=== PATIENT | male | born 1965 | race Caucasian/White ===

== ENCOUNTER 2016-07-02 10:13 | Observation (INO) | payer OTHER ==
[~2016-07-02] VITALS: Ht 177.8 cm; Wt 83.9 kg
[~2016-07-02 10:13] MED LIST: ARIP5TAB20 PO; ASPI-586 PO; ATOR20TA66 PO; BREX2TAB PO; BUPR150T9 PO; CEPH500C PO; CITA40TA11 PO; HYDR1CAP2 PO; HYDR50CA PO; HYDR50CA3 PO; KETO10TA PO; LEVO750T9 PO; LITH300C PO; LITH600C PO; RIVA15TA PO; RIVA20TA PO; VORT20TA PO; WARF6TAB6 PO
--- OUTSIDE RECORDS SUMMARY | 2016-07-02 10:20 | XMS REPORT | Continuity of Care Document ---
Author Author [facility] Organization [facility] Address Unknown Phone Unavailable Care Team Providers Care [place] [place] Worker Name Role Phone JLUIS JASMINE MD PCP Insurance Providers Payer Name Policy Number Subscriber Name Relationship [facility] [employer] [id number] Beth Kulkarni 01 Advance Directives Directive Response Recorded Date/Time Advance Directives No 12/08/15 12:02pm Health Care Power of Cap Parts Cutter No 12/08/15 12:02pm Organ Donor Yes 12/08/15 12:02pm Resuscitation Status Full Code 12/08/15 12:02pm Chief Complaint and Reason for Visit Chief Complaint RLQ PAIN Reason for Visit RLQ abdominal pain Problems Active Problems Medical Problem Onset Date Status Intractable abdominal pain Unknown Acute Leukocytosis Unknown Acute Lower abdominal pain Unknown Acute Pleuritic chest pain Unknown Acute Pulmonary embolism Unknown Acute RLL pneumonia Unknown Acute RLQ abdominal pain Unknown Acute Medications Current Home Medications Medication Dose Units Route Directions Days/Qty Instructions Start Date Hydroxyzine Pamoate 50 Mg 50 Mg Oral Three Times A Day as needed for Anxiety 06/13/15 Bupropion Hcl 150 Mg 150 Mg Oral Daily 09/18/15 Atorvastatin Calcium 20 Mg 20 Mg Oral Daily 09/18/15 Aspirin 81 Mg 81 Mg Oral Daily 09/18/15 Brexpiprazole 2 Mg 2 Mg Oral Daily 12/08/15 Vortioxetine Hydrobromide 20 Mg 20 Mg Oral Daily 12/08/15 Rivaroxaban 20 Mg 20 Mg Oral Daily 12/08/15 Past Home Medications Medication Directions Ordered Status Cephalexin Monohydrate (Keflex) 500 Mg Capsule, 1 Each Oral Four Times Daily 02/18/10 Discontinued [place] Carbonate 300 Mg Capsule, 300 Mg Oral Daily 06/12/15 Discontinued Citalopram Hydrobromide 40 Mg Tablet, 40 Mg Oral Daily 06/12/15 Discontinued Aripiprazole 5 Mg Tablet, 5 Mg Oral Bedtime 06/12/15 Discontinued Hydroxyzine Pamoate 50 Mg Capsule, 50 Mg Oral Three Times A Day as needed for Anxiety 06/12/15 Discontinued [place] Carbonate 300 Mg Capsule, 600 Mg Oral Bedtime 06/13/15 Discontinued Levofloxacin 750 Mg Tablet, 750 Mg Oral Daily 06/18/15 Discontinued Rivaroxaban 15 Mg Tablet, 15 Mg Oral Twice A Day 06/19/15 Discontinued Ketorolac Tromethamine 10 Mg Tablet, 10 Mg Oral Every 6 Hours 06/19/15 Discontinued [place] Carbonate 600 Mg Capsule, 600 Mg Oral Twice A Day 09/18/15 Discontinued Aripiprazole 5 Mg Tablet, 5 Mg Oral Daily 09/18/15 Discontinued Warfarin Sodium 6 Mg Tablet, 6 Mg Oral Daily 09/18/15 Discontinued Social History Social History Problem Response Recorded Date/Time Alcohol Use Denies Use 12/08/2015 12:03pm Recreational Drug Use No 12/08/2015 12:03pm Recent Foreign Travel No 12/08/2015 12:03pm Recent Infectious Disease Exposure No 12/08/2015 12:03pm Sexually Transmitted Disease No 12/08/2015 12:03pm HIV/AIDS No 12/08/2015 12:03pm Smoking Status Current Everyday Smoker 12/08/2015 12:02pm Do you dip or chew tobacco? No 12/08/2015 8:53am Query Response Start Date Stop Date Smoking Status Current Everyday Smoker Hospital Discharge Instructions Patient Instructions Physician Instructions Follow Up PRN Activity as tolerated High Fiber Diet 25g or more per day Avoid Alcohol, Caffeine, Spicy [place] and Acid foods. Drink 64 fluid oz or more of fluids per day. Symptoms to Report: Fever over 101 degree F, Nausea/Vomiting If any problems/questions: Contact your physician or go to Emergency Room Plan of Care Discharge Date 12/08/15 4:13pm Disposition 01 HOME, SELF-CARE Instructions/Education Provided Acute Abdominal Pain (ED) Prescriptions See Medication Section Care Plan and Goals See Discharge Instructions Section Functional Status Query Response Date Recorded Patient Orientation Person Place Time Situation December 08, 2015 4:17pm Comprehension Ability Understands Concepts December 08, 2015 12:06pm Allergies, Adverse Reactions, Alerts No known allergies. Immunizations Name Given Type Hepatitis A No Historical Hepatitis B Yes Historical Tetanus Booster (TDap) More than 5yrs Historical Vital Signs Acute Vital Signs Vital Response Date/Time Temperature (Fahrenheit) 98.0 degrees F (97.6 - 99.5) 12/08/2015 2:48pm Temperature (Calculated Celsius) 36.21570 degrees C (36.4 - 37.5) 12/08/2015 2:48pm Temperature Source Tympanic 12/08/2015 2:48pm Pulse Rate (adult) 60 bpm (60 - 90) 12/08/2015 4:05pm Respiratory Rate 20 bpm (12 - 24) 12/08/2015 4:05pm O2 Sat by Pulse Oximetry 97 % (88 - 100) 12/08/2015 4:05pm Blood Pressure 147/70 mm Hg 12/08/2015 4:05pm Blood Pressure Mean 95 mm Hg 12/08/2015 2:48pm Pain Numeric Pain Scale 2 12/08/2015 2:48pm Height (Feet) 5 feet 12/08/2015 12:00pm Height (Inches) 10.00 inches 12/08/2015 12:00pm Height (Calculated Centimeters) 177.114349 cm 12/08/2015 12:00pm Weight (Pounds) 211 pounds 12/08/2015 12:09pm Weight (Ounces) 1.0 oz 12/08/2015 12:09pm Weight (Calculated Grams) 22212.341 gm 12/08/2015 12:09pm Weight (Calculated Kilograms) 95.551167 kilograms 12/08/2015 12:09pm Calculated BMI 30.3 12/08/2015 12:00pm Results Laboratory Results Test Name Result Units Flags Reference Collection Date/Time Result Date/ Time Comments White Blood Count 7.6 10^3/uL 4.3-11.0 12/08/2015 2:23pm 12/08/2015 2: 35pm Red Blood Count 4.49 10^6/uL 4.35-5.85 12/08/2015 2:23pm 12/08/2015 2: 35pm Hemoglobin 14.3 G/DL 13.3-17.7 12/08/2015 2:12/08/2015 2:35pm Hematocrit 42 % 40-54 12/08/2015 2:12/08/2015 2:35pm Mean Corpuscular Volume 93 FL 80-99 12/08/2015 2:12/08/2015 2: 35pm Mean Corpuscular Hemoglobin 32 PG 25-34 12/08/2015 2:12/08/2015 2: 35pm Mean Corpuscular Hemoglobin Concent 34 G/DL 32-36 12/08/2015 2:09/2015 2:35pm Red Cell Distribution Width 14.4 % 10.0-14.5 12/08/2015 2:2015 2:35pm Platelet Count 211 10^3/uL 130-400 12/08/2015 2:12/08/2015 2:35pm Mean Platelet Volume 10.0 FL 7.4-10.4 12/08/2015 2:12/08/2015 2: 35pm Neutrophils (%) (Auto) 65 % 42-75 12/08/2015 2:12/08/2015 2:35pm Lymphocytes (%) (Auto) 21 % 12-44 12/08/2015 2:12/08/2015 2:35pm Monocytes (%) (Auto) 10 % 0-12 12/08/2015 2:12/08/2015 2:35pm Eosinophils (%) (Auto) 4 % 0-10 12/08/2015 2:12/08/2015 2:35pm Basophils (%) (Auto) 1 % 0-10 12/08/2015 2:12/08/2015 2:35pm Neutrophils # (Auto) 4.9 X 10^3 1.8-7.8 12/08/2015 2:12/08/2015 2: 35pm Lymphocytes # (Auto) 1.6 X 10^3 1.0-4.0 12/08/2015 2:12/08/2015 2: 35pm Monocytes # (Auto) 0.8 X 10^3 0.0-1.0 12/08/2015 2:12/08/2015 2: 35pm Eosinophils # (Auto) 0.3 10^3/uL 0.0-0.3 12/08/2015 2:23pm 12/08/2015 2 :35pm Basophils # (Auto) 0.1 10^3/uL 0.0-0.1 12/08/2015 2:23pm 12/08/2015 2: 35pm Prothrombin Time 15.9 SEC H 12.2-14.7 12/08/2015 9:00am 12/08/2015 9: 31am INR Comment 1.3 0.8-1.4 12/08/2015 9:00am 12/08/2015 9:31am INTERPRETIVE DATA SUGGESTED THERAPEUTIC RANGE FOR INR'S: VENOUS THROMBOSIS, PULMONARY EMBOLISM, OR PREVENTION OF SYSTEMIC EMBOLISM (EG. IN ATRIAL FIBRILLATION): 2.0 - 3.0 MECHANICAL PROSTHETIC HEART VALVES: 2.5 - 3.5* *NOTE: INR'S UP TO 4.5 MAY BE NECESSARY IN SELECTED GROUPS OF HIGH RISK PATIENTS. [employer] CONSENSUS CONFERENCE ON ANTITHROMBOTIC THERAPY (2000). Activated Partial Thromboplast Time 36 SEC H 24-35 12/08/2015 9:00am 09/2015 9:31am Urine Color YELLOW 12/08/2015 8:55am 12/08/2015 9:09am Urine Clarity CLEAR 12/08/2015 8:55am 12/08/2015 9:09am Urine pH 6.5 5-9 12/08/2015 8:55am 12/08/2015 9:09am Urine Specific [place] 1.005 * 1.016-1.022 12/08/2015 8:55am 2015 9:09am Urine Protein NEGATIVE NEGATIVE 12/08/2015 8:55am 12/08/2015 9:09am Urine Glucose (UA) NEGATIVE NEGATIVE 12/08/2015 8:55am 12/08/2015 9: 09am Urine RBC (Auto) NEGATIVE NEGATIVE 12/08/2015 8:55am 12/08/2015 9: 09am Urine Ketones NEGATIVE NEGATIVE 12/08/2015 8:55am 12/08/2015 9:09am Urine Nitrite NEGATIVE NEGATIVE 12/08/2015 8:55am 12/08/2015 9:09am Urine Bilirubin NEGATIVE NEGATIVE 12/08/2015 8:55am 12/08/2015 9: 09am Urine Urobilinogen NORMAL MG/DL NORMAL 12/08/2015 8:55am 12/08/2015 9: 09am Urine Leukocyte Esterase NEGATIVE NEGATIVE 12/08/2015 8:55am 2015 9:09am Urine RBC NONE /HPF 12/08/2015 8:55am 12/08/2015 9:09am Urine WBC NONE /HPF 12/08/2015 8:55am 12/08/2015 9:09am Urine Bacteria NEGATIVE /HPF 12/08/2015 8:55am 12/08/2015 9:09am Urine Crystals NONE /LPF 12/08/2015 8:55am 12/08/2015 9:09am Urine Casts NONE /LPF 12/08/2015 8:55am 12/08/2015 9:09am Urine Mucus SMALL /LPF * 12/08/2015 8:55am 12/08/2015 9:09am Urine Culture Indicated NO 12/08/2015 8:55am 12/08/2015 9:09am Sodium Level 138 MMOL/L 135-145 12/08/2015 9:00am 12/08/2015 9:45am Potassium Level 4.0 MMOL/L 3.6-5.0 12/08/2015 9:00am 12/08/2015 9:45am Chloride Level 105 MMOL/L 98-107 12/08/2015 9:00am 12/08/2015 9:45am Carbon Dioxide Level 22 MMOL/L 21-32 12/08/2015 9:00am 12/08/2015 9: 45am Anion Gap 11 MMOL/L 5-14 12/08/2015 9:00am 12/08/2015 9:45am Blood Urea Nitrogen 14 MG/DL 7-18 12/08/2015 9:00am 12/08/2015 9:45am Creatinine 0.96 MG/DL 0.60-1.30 12/08/2015 9:00am 12/08/2015 9:45am BUN/Creatinine Ratio 15 12/08/2015 9:00am 12/08/2015 9:45am Estimat Glomerular Filtration Rate > 60 12/08/2015 9:00am 2015 9:45am GFR INTERPRETIVE DATA UNITS FOR ESTIMATED GFR (eGFR): mL/min/1.73 M2 REFERENCE RANGE FOR ESTIMATED GFR (eGFR) eGFR NORMAL eGFR >60 MODERATELY DECREASED eGFR 30-59 SEVERLY DECREASED eGFR 15-29 KIDNEY FAILURE <15 (OR DIALYSIS) Glucose Level 100 MG/DL 70-105 12/08/2015 9:00am 12/08/2015 9:45am Calcium Level 9.2 MG/DL 8.5-10.1 12/08/2015 9:00am 12/08/2015 9:45am Total Bilirubin 0.4 MG/DL 0.1-1.0 12/08/2015 9:00am 12/08/2015 9:45am Alkaline Phosphatase 56 U/L 40-136 12/08/2015 9:00am 12/08/2015 9:45am Aspartate Amino Transf (AST/SGOT) 22 U/L 5-34 12/08/2015 9:00am 2015 9:45am Alanine Aminotransferase (ALT/SGPT) 43 U/L 0-55 12/08/2015 9:00am 12/07 9:45am Total Protein 6.9 G/DL 6.4-8.2 12/08/2015 9:00am 12/08/2015 9:45am Albumin 4.6 G/DL H 3.2-4.5 12/08/2015 9:00am 12/08/2015 9:45am Amylase Level 56 U/L 25-125 12/08/2015 9:00am 12/08/2015 9:45am Lipase 23 U/L 8-78 12/08/2015 9:00am 12/08/2015 9:45am Procedures No known history of procedures. Encounters Encounter Location Arrival/Admit Date Discharge/Depart Date Attending Provider Discharged Inpatient (obs) [facility] 12/08/15 10:47am 12/08/15 4:13pm ROLANDA SOTO MD Recent Diagnosis RLQ abdominal pain
[2016-07-02] MEDS ORDERED: ASPIRIN 81 MG CHEW (CHILDREN'S ASA) PO ONE (10:30)
[2016-07-02 10:36] LABS: BASOPHILS # (AUTO) 0.1 10^3/uL (0.0-0.1); BASOPHILS % (AUTO) 2 % (0-10); EOSINOPHILS # (AUTO) 0.3 10^3/uL (0.0-0.3); EOSINOPHILS % (AUTO) 5 % (0-10); LYMPHOCYTES # (AUTO) 1.8 X 10^3 (1.0-4.0); LYMPHOCYTES % (AUTO) 26 % (12-44); MEAN CORPUSCULAR HEMOGLOBIN 32 PG (25-34); MEAN CORPUSCULAR HGB CONC 34 G/DL (32-36); MEAN CORPUSCULAR VOLUME 94 FL (80-99); MEAN PLATELET VOLUME 10.3 FL (7.4-10.4); MONOCYTES # (AUTO) 0.7 X 10^3 (0.0-1.0); MONOCYTES % (AUTO) 10 % (0-12); NEUTROPHILS # (AUTO) 4.1 X 10^3 (1.8-7.8); NEUTROPHILS % (AUTO) 58 % (42-75); PLATELET COUNT 248 10^3/uL (130-400); RED BLOOD COUNT 4.56 10^6/uL (4.35-5.85); RED CELL DISTRIBUTION WIDTH 13.5 % (10.0-14.5)
[2016-07-02 10:47] LABS: INR 1.3 (0.8-1.4); PROTHROMBIN TIME PATIENT 16.2 SEC (12.2-14.7)
--- NOTE | 2016-07-02 10:54 | ED Chest Pain ---
General Chief Complaint: Chest Pain Stated Complaint: CHEST PAIN Source: patient Exam Limitations: no limitations History of Present Illness Time seen by provider: 10:16 Initial Comments Here with report of left-sided chest pain that started about an hour prior to arrival. Complains of aching to the left chest that radiates to the left arm and back. Initially started as sharp but now dull. Seen by his primary care provider and sent here for further evaluation. Does have history of blood clots and is on blood thinners. States that he takes that as directed. Denies shortness of breath currently. Timing/Duration: 1-3 hours Severity/Quality: moderate Location: central Radiation: arms (left), back Activities at Onset: none Prior CP/Workup: echocardiography, stress test Modifying Factors: worse with movement, improves with rest ASA po MANAGER STUDY: No NTG SL MANAGER STUDY: No Associated Symptoms: No abdominal pain, back pain dizzinessNo fever/chills, No nausea/vomiting, No shortness of breath, No weakness Allergies and Home Medications Allergies Coded Allergies: No Known Drug Allergies (Unverified , 02/18/10) Home Medications Aspirin 81 Mg Tablet.dr 81 MG PO DAILY (Reported) Atorvastatin Calcium 20 Mg Tablet 20 MG PO DAILY (Reported) Rivaroxaban 20 Mg Tablet 20 MG PO DAILY (Reported) Review of Systems Constitutional: see HPINo chills, No fever Respiratory: No Symptoms ReportedDenies Cough, Denies Shortness of Air Cardiovascular: Chest PainDenies Edema, Denies Irregular Heart Rate, Lightheadedness Gastrointestinal: No Symptoms ReportedDenies Nausea, Denies Vomiting Genitourinary: No Symptoms Reported Musculoskeletal: no symptoms reported Skin: no symptoms reported Psychiatric/Neurological: No Symptoms Reported All Other Systems Reviewed Negative Unless Noted: Yes Past Dvsljfc-Ijziyf-Swypqe Hx Patient Social History Alcohol Use: Denies Use Recreational Drug Use: No Immunizations Up To Date Tetanus Booster (TDap): More than 5yrs PED Vaccines UTD: Yes Seasonal Allergies Seasonal Allergies: No Surgeries HX Surgeries: No Respiratory Hx Respiratory Disorders: Yes (SLEEP APNEA-CPAP, HX PE IN Jun) Respiratory Disorders: Pulmonary Embolism Cardiovascular Hx Cardiac Disorders: Yes Cardiac Disorders: Coronary Artery Disease, High Cholesterol, Peripheral Vascular Neurological Hx Neurological Disorders: Yes Reproductive System Hx Reproductive Disorders: No Sexually Transmitted Disease: No HIV/AIDS: No Genitourinary Hx Genitourinary Disorders: No Gastrointestinal Hx Gastrointestinal Disorders: Yes Gastrointestinal Disorders: Gastroesophageal Reflux, Hiatal Hernia Musculoskeletal Hx Musculoskeletal Disorders: No Endocrine Hx Endocrine Disorders: No HEENT HX ENT Disorders: No Loss of Vision: Denies Hearing Impairment: Denies Cancer Hx Cancer: No Psychosocial Hx Psychiatric Problems: Yes Behavioral Health Disorders: Anxiety, Bipolar, Depression Integumentary HX Skin/Integumentary Disorder: No Blood Transfusions Hx Blood Disorders: No Adverse Reaction to a Blood Tr: No (NEVER HAD ONE ) Reviewed Nursing Assessment Reviewed/Agree w Nursing PMH: Yes Family Medical History Significant Family History: Asthma, Diabetes, Hypertension Family Medial History: Alcoholism 19 FATHER Arthritis 19 FATHER Asthma G8 SISTER Cancer of mouth Cataracts 19 MOTHER Diabetes mellitus 19 MOTHER Hypercholesterolemia 19 MOTHER Hypertension 19 MOTHER Severe allergy G8 SISTER Visual disorder 19 FATHER (Macular degeneration ) Physical Exam Vital Signs Vital Sign - Last 12Hours 07/02/16 10:13 Temp 97.5 Pulse 71 Resp 16 B/P 173/93 Pulse Ox 97 O2 Delivery Room Air Capillary Refill : General Appearance: No Apparent Distress WD/WN HEENT: PERRL/EOMI Pharynx Normal Neck: Non Tender Supple Respiratory: Lungs Clear Normal Breath Sounds Cardiovascular: Regular Rate, Rhythm No Murmur Gastrointestinal: Non Tender Soft Extremity: Non Tender No Calf Tenderness Neurologic/Psychiatric: Alert Oriented x3 Skin: Normal Color Warm/Dry Progress/Results/Core Measures Results/Orders Lab Results Laboratory Tests Test 07/02/16 10:25 07/02/16 13:28 Range/Units Activated Partial Thromboplast Time 36 H 24-35 SEC Alanine Aminotransferase (ALT/SGPT) 25 0-55 U/L Albumin 5.0 H 3.2-4.5 G/DL Alkaline Phosphatase 60 40-136 U/L Amylase Level 64 25-125 U/L Anion Gap 11 5-14 MMOL/L Aspartate Amino Transf (AST/SGOT) 24 5-34 U/L BUN/Creatinine Ratio 10 Basophils # (Auto) 0.1 0.0-0.1 10^3/uL Basophils (%) (Auto) 2 0-10 % Blood Urea Nitrogen 10 7-18 MG/DL Calcium Level 9.7 8.5-10.1 MG/DL Carbon Dioxide Level 22 21-32 MMOL/L Chloride Level 110 H 98-107 MMOL/L Creatinine 0.96 0.60-1.30 MG/DL D-Dimer 0.27 0.00-0.49 UG/ML Eosinophils # (Auto) 0.3 0.0-0.3 10^3/uL Eosinophils (%) (Auto) 5 0-10 % Estimat Glomerular Filtration Rate > 60 Glucose Level 103 70-105 MG/DL Hematocrit 43 40-54 % Hemoglobin 14.7 13.3-17.7 G/DL INR Comment 1.3 0.8-1.4 Lipase 19 8-78 U/L Lymphocytes # (Auto) 1.8 1.0-4.0 X 10^3 Lymphocytes (%) (Auto) 26 12-44 % Magnesium Level 2.6 H 1.8-2.4 MG/DL Mean Corpuscular Hemoglobin 32 25-34 PG Mean Corpuscular Hemoglobin Concent 34 32-36 G/DL Mean Corpuscular Volume 94 80-99 FL Mean Platelet Volume 10.3 7.4-10.4 FL Monocytes # (Auto) 0.7 0.0-1.0 X 10^3 Monocytes (%) (Auto) 10 0-12 % Myoglobin 37.5 10.0-92.0 NG/ML Neutrophils # (Auto) 4.1 1.8-7.8 X 10^3 Neutrophils (%) (Auto) 58 42-75 % Platelet Count 248 130-400 10^3/uL Potassium Level 3.9 3.6-5.0 MMOL/L Prothrombin Time 16.2 H 12.2-14.7 SEC Red Blood Count 4.56 4.35-5.85 10^6/uL Red Cell Distribution Width 13.5 10.0-14.5 % Sodium Level 143 135-145 MMOL/L Total Bilirubin 0.5 0.1-1.0 MG/DL Total Protein 7.5 6.4-8.2 G/DL Troponin I < 0.30 < 0.30 <0.30 NG/ML White Blood Count 7.0 4.3-11.0 10^3/uL My Orders Orders-GONZALEZ EVANGELISTA MD Cbc With Automated Diff (07/02/16 10:22) Magnesium (07/02/16 10:22) Chest 1 View, Ap/Pa Only (07/02/16 10:22) Ekg Tracing (07/02/16 10:22) Cardiac Profile 1 (07/02/16 10:22) Comprehensive Metabolic Panel (07/02/16 10:22) Myoglobin Serum (07/02/16 10:22) Protime With Inr (07/02/16 10:22) Partial Thromboplastin Time (07/02/16 10:22) O2 (07/02/16 10:22) Monitor-Rhythm Ecg Trace Only (07/02/16 10:22) Lipid Panel (07/03/16 06:00) Aspirin Chewable Tablet (Baby Aspirin Ch (07/02/16 10:30) Saline Lock/Iv-Start (07/02/16 10:22) Lipase (07/02/16 10:22) Amylase (07/02/16 10:22) Fibrin Degradation Products (07/02/16 10:22) Ketorolac Injection (Toradol Injection) (07/02/16 11:34) Troponin I (07/02/16 13:17) Ekg Tracing (07/02/16 13:17) Rx-Nitroglycerin Sl Tabs (Rx-Nitrostat S (07/02/16 13:30) Metoprolol Succinate (Xl) Tab (Toprol Xl (07/02/16 14:30) Medications Given in ED Current Medications Medications Dose Ordered Sig/Rose Mary Route Start Time Stop Time Status Last Admin Dose Admin Aspirin 324 mg ONCE ONCE PO 07/02/16 10:30 07/02/16 10:31 DC 07/02/16 10:50 324 MG Nitroglycerin 0.4 mg UD ONCE SL 07/02/16 13:30 07/02/16 13:31 DC 07/02/16 13:34 0.4 MG Vital Signs/I&O Vital Sign - Last 12Hours 07/02/16 07/02/16 07/02/16 07/02/16 10:13 10:20 10:50 12:09 Temp 97.5 98.1 98.1 Pulse 71 Resp 16 B/P 173/93 Pulse Ox 97 O2 Delivery Room Air Room Air Progress Note : Progress Note Seen and evaluated. IV, labs, EKG and chest x-ray. ASA 324 mg by mouth given. Monitor patient. 1145: Pain is improved but he still has a mild dull ache to his back. Toradol 30 mg IV ordered. No indication of blood clots or acute STEMI currently. We will continue to monitor. 1315: No acute findings but patient still has a little chest pain that he describes as an ache at his shoulder now. Nitroglycerin sublingual ordered. Repeat troponin and EKG. Monitor patient. 1410: Discussed case with Dr. Bynum as patient still has a vague complaint of chest discomfort although much improved overall. We will admit, observation status. Consult Dr. Arthur. This was placed at 1415. Dr. Bynum to write orders. Dr. Arthur request Toprol-XL 25 mg by mouth times one now. This was ordered. Patient and family agree with plan. ECG Initial ECG Impression Date: Jul 02, 2016 Initial ECG Impression Time: 10:20 Initial ECG Rate: 58 Initial ECG Rhythm: Normal Sinus Comment Sinus rhythm with left ventricular hypertrophy. No evidence of ST elevation AL. No previous EKG available for comparison. Interpreted by me. EKG : EKG Time: 14:24 Rate: 50 Rhythm: Normal Sinus ECG Comparisson: Unchanged Comment Sinus rhythm with left atrial abnormality and probable LVH. Overall very similar to previous of EKG done earlier without evidence of ST elevation AL. Interpreted by me. Diagnostic Imaging Diagonstic Imaging: Xray Plain Films/CT/US/NM/MRI: chest Comments [facility]. [place], [place] NAME: MANSI KULKARNI REC#: [id number] PT STATUS: REG ER : 1965 PHYSICIAN: GONZALEZ EVANGELISTA MD ADMIT DATE: 07/02/16/ER Draft Date of Exam:07/02/16 CHEST 1 VIEW, AP/PA ONLY INDICATION: Left-sided chest pain. Frontal chest obtained at 10:58 a.m. Heart and mediastinal silhouette are normal in appearance. The lungs are clear. There is no pneumothorax or pleural fluid. IMPRESSION: Negative chest. Dictated on workstation # [id number] Dict: 07/02/16 1117 Trans: 07/02/16 1118 [id number] Interpreted by: INDIRA CRUZ MD Electronically signed by: Reviewed: Reviewed by Me Departure Communication Time/Spoke to Admitting Phy: 14:10 Time/Spoke to Consulting Physi: 14:15 Impression Impression: Primary Impression: Chest pain Qualified Code: R07.2 - Precordial pain Disposition: 09 ADMITTED INPATIENT Condition: Stable Decision to Admit Reason: Admit from ER (General) Decision to Admit/Date: Jul 02, 2016 Time/Decision to Admit Time: 14:10 Departure-Patient Inst. Referrals: JLUIS JASMINE MD (PCP/Family) Primary Care Physician GONZALEZ EVANGELISTA MD Jul 02, 2016 10:54
[2016-07-02 11:00] LABS: ALANINE AMINOTRANSFERASE 25 U/L (0-55); AMYLASE 64 U/L (25-125); ANION GAP 11 MMOL/L (5-14); ASPARTATE AMINO TRANSFERASE 24 U/L (5-34); BILIRUBIN,TOTAL 0.5 MG/DL (0.1-1.0); BLOOD UREA NITROGEN 10 MG/DL (7-18); BUN/CREATININE RATIO 10; CALCIUM 9.7 MG/DL (8.5-10.1); CARBON DIOXIDE 22 MMOL/L (21-32); CHLORIDE 110 MMOL/L (98-107); CREATININE SERUM 0.96 MG/DL (0.60-1.30); GFR ESTIMATED > 60; GLUCOSE 103 MG/DL (70-105); LIPASE 19 U/L (8-78); MAGNESIUM 2.6 MG/DL (1.8-2.4); POTASSIUM 3.9 MMOL/L (3.6-5.0); SODIUM 143 MMOL/L (135-145); TOTAL PROTEIN 7.5 G/DL (6.4-8.2)
[2016-07-02 11:06] LABS: MYOGLOBIN SERUM 37.5 NG/ML (10.0-92.0)
--- NOTE | 2016-07-02 11:19 | Diagnostic Imaging Report ---
INDICATION: Left-sided chest pain. Frontal chest obtained at 10:58 a.m. Heart and mediastinal silhouette are normal in appearance. The lungs are clear. There is no pneumothorax or pleural fluid. IMPRESSION: Negative chest. Dictated by: Dictated on workstation # [id number]
[2016-07-02] MEDS ORDERED: KETOROLAC 30 MG/ML VIAL IVP STA (11:34)
[2016-07-02] MEDS ORDERED: RX-NITROGLYCERIN 0.4 MG TAB BTL 25'S SL ONE (13:30)
[2016-07-02] MEDS ORDERED: HYDROcodone/APAP 5 MG/325 MG (LORTAB) TAB PO PRN (14:30)
[2016-07-02] MEDS ORDERED: PATIENT MAY USE OWN MEDS, ALL PO SCH (14:30)
[2016-07-02] MEDS ORDERED: SENNA W/DOCUSATE (SENOKOT S) TABLET PO PRN (14:30)
[2016-07-02] MEDS ORDERED: ONDANSETRON 4 MG/2 ML (SDV) Z0FRAN IVP PRN ×2 (14:30)
[2016-07-02] MEDS ORDERED: ALPRAZolam 0.25 MG (XANAX) TAB PO PRN (14:30)
[2016-07-02] MEDS ORDERED: ACETAMINOPHEN 500 MG TAB (TYLENOL) PO PRN (14:30)
[2016-07-02] MEDS ORDERED: morphine INJ 10 MG/ML 1ML (SYR OR VIAL) IVP PRN (14:30)
[2016-07-02] MEDS ORDERED: NITROGLYCERIN SUBLINGUAL 0.4 MG TAB (NITROSTAT) SL PRN (14:45)
[2016-07-02 15:35] VITALS: BP 147/84
[2016-07-02 16:00] VITALS: BP 138/88
[2016-07-02] MEDS ORDERED: FLU TRIvalent (5 YOA+) 2016-17 (AFLURIA) 0.5 ML IM ONE (16:00)
[2016-07-02] MEDS ORDERED: ANTACID SUSP 30 ML UDC (MYLANTA) PO PRN (17:30)
[2016-07-02] MEDS ORDERED: oxyCODONE/APAP 5/325MG (PERCOCET 5) TABLET PO PRN (17:30)
[2016-07-02] MEDS ORDERED: PANTOPRAZOLE 40 MG/10 ML (PROTONIX) VIAL IV NR (17:30)
[2016-07-02] MEDS ORDERED: ACETAMINOPHEN 325 MG TABLET/CAPLET (TYLENOL) PO PRN (17:30)
[2016-07-02 20:00] VITALS: BP 129/87
[2016-07-03] VITALS: BP 119/66
[2016-07-03 04:00] VITALS: BP 126/72
[2016-07-03 04:28] LABS: CHOLESTEROL 117 MG/DL (< 200); DIRECT LDL 58 MG/DL (1-129); TRIGLYCERIDES 121 MG/DL (<150); VLDL CHOLESTEROL 24 MG/DL (5-40)
[2016-07-03 08:00] VITALS: BP 117/70
[2016-07-03] MEDS ORDERED: PANTOPRAZOLE 40 MG/10 ML (PROTONIX) VIAL IV SCH (09:00)
[2016-07-03] MEDS ORDERED: ASPIRIN E.C. 325 MG (ECOTRIN) TABLET PO SCH (09:00)
--- NOTE | 2016-07-03 10:18 | Short Stay Summary-Hospitalist ---
HPI History of Present Illness: Date Seen 07/03/16 Attending Physician Lisa Bynum DO PCP Roger Zarco MD Referring Physician Date of Admission Jul 02, 2016 at 14:19 Home Medications & Allergies Home Medications Reviewed patient Home Medication Reconciliation Form Allergies Coded Allergies: No Known Drug Allergies (Unverified , 02/18/10) Past Bkoawsz-Iirhxy-Meowip Hx Patient Social History Alcohol Use: Denies Use Recreational Drug Use: No Smoking Status: Current Everyday Smoker Type Used: Cigarettes Physical Abuse Screen: No Sexual Abuse: No Recent Foreign Travel: Yes ([facility]) Contact w/other who traveled: Yes ([facility]) Recent Hopitalizations: No Recent Infectious Disease Expo: No Immunizations Up To Date Tetanus Booster (TDap): More than 5yrs Seasonal Allergies Seasonal Allergies: No Surgeries HX Surgeries: No Respiratory Hx Respiratory Disorders: Yes (SLEEP APNEA-CPAP, HX PE IN Jun) Cardiovascular Hx Cardiovascular Disorders: Yes Cardiac Disorders: Coronary Artery Disease, High Cholesterol, Peripheral Vascular Neurological Hx Neurological Disorders: Yes Reproductive System Hx Reproductive Disorders: No Sexually Transmitted Disease: No HIV/AIDS: No Genitourinary Hx Genitourinary Disorders: No Gastrointestinal Hx Gastrointestinal Disorders: Yes Gastrointestinal Disorders: Gastroesophageal Reflux, Hiatal Hernia Musculoskeletal Hx Musculoskeletal Disorders: No Endocrine Hx Endocrine Disorders: No HEENT HX ENT Disorders: No Loss of Vision: Denies Hearing Impairment: Denies Cancer Hx Cancer: No Psychosocial Hx Psychiatric Problems: Yes Behavioral Health Disorders: Bipolar, Depression Integumentary HX Skin/Integumentary Disorder: No Blood Transfusions Hx Blood Disorders: No Adverse Reaction to a Blood Tr: No Reviewed Nursing Assessment Reviewed/Agree w Nursing PMH: Yes Family Medical History Significant Family History: Asthma, Diabetes, Hypertension Family Hx: Alcoholism 19 FATHER Arthritis 19 FATHER Asthma G8 SISTER Cancer of mouth 19 FATHER Cataracts 19 FATHER 19 MOTHER Diabetes mellitus 19 MOTHER Hypercholesterolemia 19 MOTHER Hypertension 19 MOTHER Severe allergy G8 SISTER (MULTIPLE ALLERGIES) Visual disorder 19 FATHER (Macular degeneration ) Physical Exam Physical Exam Vital Signs Vital Sign - Last 12Hours 07/02/16 10:13 Temp 97.5 Pulse 71 Resp 16 B/P 173/93 Pulse Ox 97 O2 Delivery Room Air Capillary Refill : Less Than 3 Seconds Results Results/Procedures Lab Laboratory Tests 07/02/16 10:25 Clinical Quality Measures AMI/AHF: ASA po Prior to arrival: No DVT/VTE Risk/Contraindication: Risk Factor Score Per Nursin RFS Level Per Nursing on Admit: 1=Low/No VTE PPX LISA BYNUM DO Jul 03, 2016 10:18
--- NOTE | 2016-07-03 10:34 | Cardiology History & Physical ---
HPI-Cardiology Cardiology H&P Date of Admission 07/02/16 Primary Care Physician Roger Zarco MD Attending Physician Mahesh Sultana MD FACP [facility] Consulting Physician IMANI CC: Chest pain HPI: 50 man with 36 - 48 hours of mild L inframammary localized discomfort that is constant, worse with certain kinds of movements, non-radiating, without aggravating of relieving factors, not associated with any other symptoms, currently improved. Denies exertional shortness of breath or palp or syncope or leg swelling or fever or chills Review of Systems-Cardiology Review of Systems Constitutional: No chills, No fever, No tiredness, No weight loss, No weight gain Eyes: No vision change Ears/Nose/Throat: No ear discharge, No nasal drainage, No recent hearing loss Respiratory: As described under HPI Cardiovascular: As described under HPI Gastrointestinal: No constipation, No diarrhea, No nausea, No vomiting Genitourinary: No dysuria, No hematuria, No urine frequency changes, No urine coloration changes Musculoskeletal: back pain (chronic) Skin: No rash, No ulcerations Psychiatric/Neurological: No focal weakness, No seizure Hematologic: No bleeding abnormalities All Other Systems Reviewed Negative Unless Noted: Yes [id number] Hx Patient Social History Alcohol Use: Denies Use Recreational Drug Use: No Smoking Status: Current Everyday Smoker Type Used: Cigarettes Recent Foreign Travel: Yes ([place]) Recent Infectious Disease Expo: No Hospitalization with Isolation: Denies Physical Abuse Screen: No Sexual Abuse: No Immunizations Up To Date Tetanus Booster (TDap): More than 5yrs Past Medical History PMH As described under Assessment. Family Medical History Family History: Alcoholism 19 FATHER Arthritis 19 FATHER Asthma G8 SISTER Cancer of mouth 19 FATHER Cataracts 19 FATHER 19 MOTHER Diabetes mellitus 19 MOTHER Hypercholesterolemia 19 MOTHER Hypertension 19 MOTHER Severe allergy G8 SISTER (MULTIPLE ALLERGIES) Visual disorder 19 FATHER (Macular degeneration ) Allergies and Home Medications Allergies Coded Allergies: No Known Drug Allergies (Unverified , 02/18/10) Home Medications Aspirin 81 Mg Tablet.dr 81 MG PO DAILY (Reported) Atorvastatin Calcium 20 Mg Tablet 20 MG PO DAILY (Reported) Rivaroxaban 20 Mg Tablet 20 MG PO DAILY (Reported) Physical Exam-Cardiology Physical Exam Vital Signs/I&O Vital Sign - Last 12Hours 07/03/16 07/03/16 07/03/16 07/03/16 00:00 01:10 04:00 07:00 Temp 96.0 95.7 Pulse 51 44 48 53 Resp 17 B/P 119/66 126/72 Pulse Ox 96 97 O2 Delivery Room Air Room Air 07/03/16 08:00 Temp 96.8 Pulse 54 Resp 18 B/P 117/70 Pulse Ox 97 O2 Delivery Room Air Intake and Output 07/03/16 00:00 Intake Total 480 ml Balance 480 ml Capillary Refill : Less Than 3 Seconds Constitutional: AAO x 3 well-developed well-nourished HEENT: No xanthelasmas are seen Neck: No carotid bruit, carotid pulses are 2 + bilaterally with good upstrokes Respiratory: No accessory muscle use, lungs clear to percussion lungs clear to auscultation Cardiovascular: regular rate-rhythm S1 and S2 Gastrointestinal: No tender, softNo guarding, No rebound, audible bowel sounds Extremities: No clubbing, No cyanosis, No significant edema Neurologic/Psychiatric: oriented x 3 grossly intact power is 5/5 both on sides Skin: No rash on exposed areas, No ulcerations on exposed areas Data Review Labs Laboratory Tests 07/02/16 13:28: Troponin I < 0.30 07/02/16 19:38: Troponin I < 0.30 07/03/16 03:45: Cholesterol Level 117, HDL Cholesterol 42, LDL Cholesterol Direct 58, Triglycerides Level 121, VLDL Cholesterol 24 Laboratory Tests 07/02/16 10:25 ECG Impression ECG Comment Serial ECGs (07/02 and 07/03/18) negative for myocardial ischemia or infarction A/P-Cardiology Assessment/Admission Diagnosis Chest discomfort, etiology undetermined. There is no evidence of acute cor syndrome Exercise MPI of 09-11-15 showed no evidence of any significant myocardial ischemia or infarction. Normal regional wall motion. Normal global LV systolic function with a calculated ejection fraction of 69% CAD indicated by CT of the chest of 06-18-15 which showed coronary calcification Echocardiogram of 08-11-[address] Link showed mild LV hypertrophy, diffusely. LVEF 60%. Mild MR and TR. PASP 35mmHg TUTU - being managed by Dr. Champion Hyperlipidemia, treated with statin therapy PE diagnosed in June 2015 - managed by Dr. Zarco. No evidence of PE during this admission Anticoagulation with rivaroxaban being managed by Dr. Zarco H/O marijuana use - quit 30 years ago Tobaccoism - 1 PPD H/o bipolar disorder Discussion and Recomendations * I had a detailed discussion with him * There is no evidence of ACS. Chest discomfort is improved. He wishes to go home. We advised him to return to ER if symptoms worsen or recur, or if new symptoms occur * We have advised immediate and complete smoking cessation * We vigourously ambulated him and he tolerated it well and generally felt even better with ambulation * We have advised close clinical f/u * We have advised medication compliance Clinical Quality Measures AMI/AHF: ASA po Prior to arrival: No DVT/VTE Risk/Contraindication: Risk Factor Score Per Nursin RFS Level Per Nursing on Admit: 1=Low/No VTE PPX MAHESH SULTANA MD FACP [facility] Jul 03, 2016 10:33
[2016-07-03] MEDS ORDERED: PANT40VI IV (10:46)
--- NOTE | 2016-07-03 10:47 | Discharge Inst-Cardiology ---
Discharge Inst-Cardiac Discharge Medications New Medications: Pantoprazole Sodium (Protonix IV) 40 Mg Vial 40 MG IV DAILY #30 Ref 5 VIAL Continued Medications: Aspirin (Aspir 81) 81 Mg Tablet. 81 MG PO DAILY TAB Atorvastatin Calcium (Atorvastatin Calcium) 20 Mg Tablet 20 MG PO DAILY TAB Rivaroxaban (Xarelto) 20 Mg Tablet 20 MG PO DAILY TAB Patient Instructions Patient Instructions: F/u with Dr Arthur within the coming week No tobacco use of any kind Activity & Diet Discharge Diet: Cardiac Diet Orders-Post D/C & Referrals Pneu Vac Indicated: Yes MYRNA ARTHUR MD FACP [facility] Jul 03, 2016 10:47
--- NOTE | 2016-07-03 10:51 | Cardiology Discharge Summary ---
Diagnosis/Chief Complaint Date of Admission Jul 02, 2016 at 14:19 Date of Discharge 07/03/15 Final/Discharge Diagnosis Mild continuous chest discomfort, etiology undetermined. There is no evidence of acute cor syndrome Exercise MPI of 09-11-15 showed no evidence of any significant myocardial ischemia or infarction. Normal regional wall motion. Normal global LV systolic function with a calculated ejection fraction of 69% CAD indicated by CT of the chest of 06-18-15 which showed coronary calcification Echocardiogram of 08-11-[address] Link showed mild LV hypertrophy, diffusely. LVEF 60%. Mild MR and TR. PASP 35mmHg TUTU - being managed by Dr. Champion Hyperlipidemia, treated with statin therapy PE diagnosed in June 2015 - managed by Dr. Zarco. No evidence of PE during this admission Anticoagulation with rivaroxaban being managed by Dr. Zarco H/O marijuana use - quit 30 years ago Tobaccoism - 1 PPD H/o bipolar disorder Chief Complaint/HPI Chief Complaint/HPI CC: Chest pain HPI: 50 man with 36 - 48 hours of mild L inframammary localized discomfort that is constant, worse with certain kinds of movements, non-radiating, without aggravating of relieving factors, not associated with any other symptoms, currently improved. Denies exertional shortness of breath or palp or syncope or leg swelling or fever or chills There is no evidence of ACS. Symptoms are improved. He wishes to go home. I have had a detailed discussion with him. Early outpatient f/u is advised with his pcp to eval for non-cor causes of chest discomfort. Early outpatient card f/ u is also advised. We have advised immediate and complete cessation of tobacco use Discharge Summary Procedures None. Hospital Course Pending Labs Laboratory Tests 07/03/16 03:45: Cholesterol Level 117, HDL Cholesterol 42, LDL Cholesterol Direct 58, Triglycerides Level 121, VLDL Cholesterol 24 Discussion & Recommendations Home Medications Reviewed patient Home Medication Reconciliation Form Discharge Home Medications: Reviewed and agree with Discharge Medication list on patient's Discharge Instruction sheet Clinical Quality Measures AMI/AHF: ASA po Prior to arrival: No DVT/VTE Risk/Contraindication: Risk Factor Score Per Nursin RFS Level Per Nursing on Admit: 1=Low/No VTE PPX MYRNA SULTANA MD FACP [facility] Jul 03, 2016 10:51
[2016-07-03] MEDS ORDERED: PANT40TA2 PO ×2 (11:27→11:29)
== END 2016-07-03 10:44 | disposition home or self-care (01) ==
LOC: EDUNIT# 10:13 → ER 10:15 → UNDOADMOB 14:19 → ICU 14:19 → UNDODISOB 07-03 11:20
PROVIDERS: ADMIT Internal Medicine; ATTEND Internal Medicine
DX: R07.89 Other chest pain (principal); I25.10 Atherosclerotic heart disease of native coronary artery without angina pectoris; I08.1 Rheumatic disorders of both mitral and tricuspid valves; G47.33 Obstructive sleep apnea (adult) (pediatric); E78.5 Hyperlipidemia, unspecified; Z86.711 Personal history of pulmonary embolism; F17.210 Nicotine dependence, cigarettes, uncomplicated; K21.9 Gastro-esophageal reflux disease without esophagitis; Z79.01 Long term (current) use of anticoagulants
CPT/HCPCS: 36415; 71010; 80053; 80061; 82150; 83690; 83735; 83874; 84484; 85025; 85379; 85610; 85730; 93005; 93041; 96374; G0378

== ENCOUNTER → 2018-08-07 | Outpatient (CLI) | payer OTHER ==
[~2018-08-07] MED LIST changes: +PANT40TA2 PO; +PANT40VI IV; +WARF6TAB49 PO; -WARF6TAB6 PO
--- NOTE | 2018-08-07 12:31 | Diagnostic Imaging Report ---
INDICATION: Left chest pain for two days. PA and lateral views of the chest are obtained with comparison made to study of 07/02/2016. FINDINGS: Overall heart size and pulmonary vascularity are within normal limits. There is air trapping bilaterally. There is no evidence of pneumothorax or consolidation. No significant pleural fluid is seen. IMPRESSION: Air trapping likely due to emphysema. Otherwise, no acute abnormality is detected. Dictated by: Dictated on workstation # [id number]
== END ==
LOC: RAD 11:49
PROVIDERS: ATTEND Nurse Practitioner
DX: J43.9 Emphysema, unspecified (principal)
CPT/HCPCS: 71046

== ENCOUNTER → 2018-08-21 | Outpatient (CLI) | payer OTHER | LOC: RT 08:16 | PROVIDERS: ATTEND Nurse Practitioner | DX: J43.9 Emphysema, unspecified (principal) | CPT/HCPCS: 94060; 94726; 94729 ==

== ENCOUNTER → 2019-02-12 | Outpatient (CLI) | payer OTHER ==
[~2019-02-12] MED LIST changes: -RIVA15TA PO; +RIVA15TA2 PO; -RIVA20TA PO; +RIVA20TA2 PO
--- NOTE | 2019-02-12 15:20 | Diagnostic Imaging Report ---
INDICATION: COUGH BACK PAIN. COMPARISON: 08/07/2018 FINDINGS: Frontal and lateral views of the chest demonstrate normal heart size and pulmonary vascularity. The lungs are clear. There are no signs of infiltrate, pleural effusions or pneumothoraces. The visualized osseous structures show no acute abnormalities. IMPRESSION: 1. No acute process. No signs of infiltrates, effusions or pneumothoraces. Dictated by: Dictated on workstation # [id number]
== END ==
LOC: RAD 14:33
PROVIDERS: ATTEND Internal Medicine
DX: R05 Cough (principal); M54.9 Dorsalgia, unspecified
CPT/HCPCS: 71046